=== PATIENT | male | born 2000 | race Caucasian/White ===

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

== ENCOUNTER 2018-03-27 17:00 | Emergency (ER) | payer BC ==
[~2018-03-27] VITALS: Ht 180.3 cm; Wt 66.0 kg
[2018-03-27] MEDS ORDERED: HYDROcodone/APAP 7.5-325MG/15ML UDC PO PRN (17:30)
[2018-03-27] MEDS ORDERED: DEXAMETHASONE 4 MG TABLET PO ONE (17:30)
[2018-03-27] MEDS ORDERED: CEFAZOLIN 1,000 MG IM ONE (17:30)
[2018-03-27] MEDS ORDERED: DEXAMETHASONE 4 MG/ML, 1ML PO ONE (17:30)
[2018-03-27] MEDS ORDERED: CEFTRIAXONE 1,000 MG IM ONE (17:30)
[2018-03-27] MEDS ORDERED: LIDOCAINE-MPF 1%, 5ML ONE (17:33)
[2018-03-27] MEDS ORDERED: DEXAMETHASONE 4 MG TABLET ONE (17:33)
[2018-03-27] MEDS ORDERED: CEFTRIAXONE 1,000 MG ONE (17:33)
[2018-03-27] MEDS ORDERED: HYDROcodone/APAP 7.5-325MG/15ML UDC ONE (17:33)
[2018-03-27 18:24] VITALS: BP 115/71
== END 2018-03-27 18:26 | disposition home or self-care (01) ==
LOC: ED 17:22
DX: J03.90 Acute tonsillitis, unspecified (principal)
CPT/HCPCS: 36415; 86308; 96372; 99283; J0696